=== PATIENT | female | born 1945 | race Caucasian/White ===

== ENCOUNTER 2016-12-20 11:54 | Inpatient (IN) ==
[2016-12-20] MEDS ORDERED: IOPAMIDOL 100 ML BOTTLE IV ONE (11:55)
[2016-12-20] MEDS ORDERED: ASPIRIN 81 MG TAB.CHEW ONE (12:03)
--- NOTE | 2016-12-20 12:25 | XRay Report ---
CLINICAL INFORMATION: Dyspnea. Fever. Cough. TECHNIQUE: Upright PA and lateral chest x-ray COMPARISON: Previous chest x-ray dated 05/15/2016 FINDINGS: Hyperexpansion and increased AP diameter of the chest consistent with emphysema. There are cystic lucencies in the right upper lung which appear new since previous examination. Etiology is not certain. Infectious disease is possible. Localized bronchiectasis should be considered. Cystic metastases are possible. Contrast enhanced chest CT scan recommended for further evaluation. No focal parenchymal infiltrate. No detectable solid mass. Heart size and vascularity are normal. Cinthia and mediastinum are negative. No pleural fluid. No thoracic compression fractures IMPRESSION: 1. Hyperexpansion and changes consistent with emphysema 2. New small cystic lesions in the right upper lobe. Recommend chest CT scan. Interpreted and Authenticated by: Robert Pelayo 12/20/16
--- NOTE | 2016-12-20 12:50 | Emergency Department Note ---
Fever HPI - General Chief Complaint: Fever Stated Complaint: fever, cough, chest pain Time Seen by Provider: 12/20/16 12:44 Source: patient Mode of arrival: ambulatory Limitations: physical limitation - History of Present Illness HPI Narrative: 71-year-old female with a history of cough for the past 2 weeks. Increased with production. And in the last 2 days has developed some fever chills also some chest pain increases on inspiration there is no radiation of pain. Does have a history of COPD and continues smoking. Is abdominal pain there is no nausea vomiting no diarrhea. Patient is running a low-grade temperature 100.2 at this time. Denies upper respiratory type signs or symptoms - Related Data Home Medications Medication Instructions Recorded Confirmed Aspirin [Adult Low Dose Aspirin EC] 81 mg PO DAILY 09/07/15 12/20/16 Levothyroxine Sodium [Synthroid] 100 mcg PO DAILY 09/07/15 12/20/16 Simvastatin [Zocor] 40 mg PO HS 09/07/15 12/20/16 Atenolol [Tenormin] 25 mg PO DAILY 12/20/16 12/20/16 Previous Rx's Medication Instructions Recorded sertraline 25 mg tablet 25 mg PO QDAY #30 tab 12/02/16 Allergies Allergy/AdvReac Type Severity Reaction Status Date / Time Penicillins Allergy Unknown Unknown Verified 12/02/16 08:10 Hydromorphone AdvReac Intermediate Nausea Verified 12/02/16 08:10 seasonal allergies Allergy Unknown Unknown Uncoded 12/02/16 08:10 Review of Systems All systems ED: reviewed and negative except as stated. Constitutional: Reports: fever, chills Eyes: Denies: eye pain ENT ED: Denies: ear pain Cardiovascular: Reports: chest pain Respiratory: Reports: cough. Denies: dyspnea, wheezes, hemoptysis, stridor Gastrointestinal: Denies: abdominal pain Genitourinary: Denies: urgency, dysuria Musculoskeletal: Denies: back pain Integumentary: Denies: rash Neurological: Denies: headache Fever PMH - Past Medical History Medical history: Reports: arthritis, COPD, coronary artery disease, hyperlipidemia, hypertension, migraine, thyroid disease, other (headaches) Psychiatric history: Reports: anxiety, depression Family history: Reports: no significant family history - Social History smoking status: Current every day smoker Alcohol use: Reports: Rarely Drug use: Reports: none Physical Exam - General Limitations: physical limitation General appearance: alert - Head Head exam: atraumatic, normocephalic - Eye Eye exam: Present: normal appearance, PERRL - ENT ENT exam: normal exam, normal oropharynx - Neck Neck exam: Present: normal inspection, full ROM. Absent: trachea midline - Chest Chest inspection: Present: normal inspection. Absent: symmetric chest wall rise , tenderness - Respiratory Respiratory exam: Present: normal lung sounds bilaterally. Absent: respiratory distress, wheezes - Cardiovascular Cardiovascular exam: Present: regular rate, normal rhythm. Absent: bradycardia - Abdominal Exam Abdominal exam: Present: soft. Absent: distention, tenderness, guarding - Extremities Exam Extremities exam: Present: normal inspection. Absent: full ROM, tenderness - Back Exam Back exam: Present: normal inspection. Absent: full ROM, tenderness - Neurological Exam Neurological exam: Present: alert, oriented X3. Absent: CN II-XII intact - Psychiatric Psychiatric exam: Present: normal affect, normal mood - Skin Skin exam: Present: warm, dry Course Vital Signs Temperature 100.4 F H 12/20/16 11:55 Pulse Rate 95 H 12/20/16 11:55 Respiratory Rate 20 12/20/16 11:55 Blood Pressure 171/71 12/20/16 11:55 Pulse Oximetry (%) 94 12/20/16 11:55 Temperature 100.4 F H 12/20/16 11:55 Pulse Rate 88 12/20/16 12:20 Respiratory Rate 20 12/20/16 12:20 Blood Pressure 118/77 12/20/16 12:20 Pulse Oximetry (%) 94 12/20/16 12:20 Fever - Lab Data Result diagrams: 12/20/16 12:27 Lab Results 12/20/16 12/20/16 Range/Units 12:27 12:27 POC Hct 39.0 (36.0-48.0) % Band Neutrophils % Not Reportable POC Sodium 135 (133-145) mmol/L POC Potassium 3.8 (3.3-5.1) mmol/L POC Chloride 95 L (96-108) mmol/L POC Total CO2 24 (22-30) mmol/L POC BUN 10 (8-23) mg/dl POC Creatinine 0.8 (0.6-1.1) mg/dl POC Glucose 129 H (70-105) mg/dL POC WB Ioniz Calcium 1.10 L (1.16-1.32) mmol/L Disposition Condition: Fair Referrals: Robert Jean DO [Primary Care Provider] -
[2016-12-20 13:03] LABS: Mean Cell Volume 93.1 fL (80.0-100.0); Mean Corpuscular HGB Conc 34.2 g/dL (31.0-36.0); Mean Corpuscular Hemoglobin 31.8 pg (26.0-34.0); Platelet Count 332 K/mcL (140-440); RBC 3.92 M/mcL (4.00-5.20); Red Cell Distribution Width 13.9 % (11.5-14.5)
[2016-12-20 13:23] LABS: Myoglobin 41 ng/ml (25-58)
[2016-12-20 13:24] LABS: Creatine Kinase 145 IU/L (24-170)
[2016-12-20 13:42] LABS: Band Neutrophils % 7 % (0-10); Eosinophils % (Manual) 1 % (0-7); Lymphocytes % 12 % (15-49); Monocytes % (Manual) 9 % (1-12); Platelet Estimate NORMAL (NORMAL); RBC Morphology NORMAL (NORMAL); Segmented Neutrophils % 71 % (38-78)
[2016-12-20 14:41] LABS: Appearance,Urine HAZY; Bacteria,Urine 0 /hpf (0); Bilirubin,Urine NEG (NEG); Color,Urine AMBER; Glucose,Urine (UA) NEGATIVE (NEG); Ictotest,Urine NEG (NEG); Leukocyte Esterase,Urine 75 /uL (NEG); Mucus,Urine MANY /hpf (0); Nitrate,Urine NEG (NEG); Protein,Urine 30 mg/dL (NEG); Specific Gravity,Urine 1.023 (1.000-1.035); Urine Blood 0.2 mg/dL (<0.03); Urine Hyaline Cast 1 /lpf (0-2); Urine RBC 39 /hpf (0-1); Urine Squamous Epithelial Cell 3 /hpf (0-4); Urine WBC 7 /hpf (0-4)
--- NOTE | 2016-12-20 16:59 | Cat Scan Report ---
CLINICAL INFORMATION: Fever. Dyspnea. Abnormal chest x-ray. COMPARISON: Previous chest x-rays dated 12/20/2016 and 05/15/2016 TECHNIQUE: Axial contrast enhanced images through the chest. Sagittally and coronally reformatted images. MIP reformatted images. 70 mL nonionic contrast material injected intravenously. FINDINGS: Nodular pulmonary parenchymal abnormality in the anterior segment of the right upper lobe. Mild infiltrate and nodularity in the superior segment of the right upper lobe. Mild focal infiltrate in the right middle lobe. Lungs are otherwise negative. Left lung is negative. No parenchymal infiltrate or mass. Findings are most consistent with inflammatory disease. Cystic lesions were suspected on previous chest x-ray but no well-defined cavitation demonstrated presently. Pulmonary CTA was not performed but the pulmonary vasculature is well opacified and is negative. No pulmonary embolism. Mild right hilar adenopathy. This is probably reactive. Combination of findings most consistent with right lung pneumonia. Follow-up chest x-ray recommended. Cervical lordosis is possible but much less likely in this patient with history of fever and chest pain. No mediastinal adenopathy. Left hilum is negative. No axillary or supraclavicular adenopathy. No pleural fluid. Thoracic spine, ribs, sternum are negative. Images of the upper abdomen are negative except for a left renal cyst and a small to moderate hiatal hernia IMPRESSION: 1. Nodular infiltrate in the right upper lobe and right middle lobe consistent with inflammatory disease. Mild right hilar adenopathy 2. Follow-up chest x-ray recommended. 3. No left lung infiltrate. No pulmonary embolism. 4. Small to moderate hiatal hernia Interpreted and Authenticated by: Robert Pelayo 12/20/16
[2016-12-20] MEDS ORDERED: AZITHROMYCIN 500 MG in DEXTROSE 5% IN WATER 250 ML IV ONE (17:27)
[2016-12-20] MEDS ORDERED: cefTRIAXone 1 GM in DEXTROSE 5% IN WATER 50 ML IV ONE (17:27)
--- NOTE | 2016-12-20 17:58 | Internal Med History&Physical ---
Medical - H&P: [facility] Patient information: Note initiated : 12/20/16 at 5:55 pm Service Date, if different from initiated Date: [] Patient: Tressa Galeas 71 y/o F admitted on for fever, cough, chest pain. Chief Complaint: [] History of present illness: Ms. Galeas is a 71 year old Female with h/o copd, smoker, presents to the ER with complaints of not feeling well x 2 weeks She notes nearly everyone around her was having some kind of infection, grand kids, great grand kids, she started with cough, greenish sputum in AM, and subjective sensation of fever, associated with malaise and shortness of breath, which got progressively worse over 2 weeks SOB has been getting worse, needing use of albuterol x 2 in AM to help her breathe better, She notes she can usually walk [id number] the house without any issues, but now walking down the living room also makes her short of breath. She also reports increased frequency of urinartion and foul smelling urine. - Constitutional Constitutional: Present: chills, fatigue, fever(s), headache(s) (chronic), malaise, night sweats - EENT Eyes: Absent: change in vision, diplopia, photophobia, other visual disturbances - Cardiovascular Cardiovascular: Present: chest pain, dyspnea on exertion. Absent: leg edema, palpatations, syncope - Respiratory Respiratory: Present: cough, dyspnea, dyspnea on exertion, wheezing, chest congestion, excessive phlegm production, change in phlegm color, pain with cough. Absent: hemoptysis - Gastrointestinal Gastrointestinal: Present: dyspepsia, nausea. Absent: constipation, vomiting - Genitourinary Genitourinary: Present: dysuria, urinary urgency - Musculoskeletal Musculoskeletal: Present: arthralgias, back pain - Neurological Neurological: Present: dizziness, headache(s). Absent: syncope - Psychiatric Psychiatric: Present: depression. Absent: behavioral changes - Endocrine Endocrine: Absent: polydipsia, polyphagia, polyuria - Hematologic/Lymphatic Hematologic/Lymphatic: Absent: easy bleeding, easy bruising - Allergic/Immunologic Allergic/Immunologic: Present: wheezing. Absent: lip swelling Medical - H&P: [facility] Medical history: Medical History (Last Updated 12/16/16 @ 12:08 by Madelyn Winslow) Chronic pain syndrome (Chronic) Fibromyalgia (Chronic) Hypothyroidism (Chronic) Restless leg syndrome (Chronic) Low back pain (Chronic) Coronary artery disease (Chronic) Acute diverticulitis (Chronic) Weight loss, abnormal (Chronic) Headache (Chronic) Gastritis (Chronic) Degenerative joint disease (Chronic) Arachnoid cyst (Chronic) Eye discomfort (Chronic) Generalized headaches (Chronic) Tobacco abuse (Chronic) Brain cyst (Chronic ~1991) Bowel disease (Chronic) Thyroid disease (Chronic) Hyperlipidemia (Chronic) Hypertension, essential (Chronic) Depression (Chronic) Muscle pain (Chronic) Lung disorder (Chronic) Arthritis (Chronic) Anxiety (Chronic) UTI (urinary tract infection) (Acute) Delirium (Acute) SIRS (systemic inflammatory response syndrome) (Acute) Septic shock (Acute) Gastroenteritis (Acute) Esophagitis (Acute) Partial small bowel obstruction (Acute) Adynamic ileus (Acute) Gastroduodenitis without bleeding (Acute) Hypertension (Acute) Chronic obstructive lung disease (Acute) Surgical history: Past Surgical History (Last Updated 12/16/16 @ 12:11 by Madelyn Winslow) H/O colonoscopy (Chronic ~2014) H/O knee surgery (Chronic) H/O neck surgery (Chronic 08/18/04) H/O shoulder surgery (Chronic) H/O: (Chronic) H/O: hysterectomy (Chronic) History of esophagogastroduodenoscopy (EGD) (Chronic 05/15/16) History of intestinal surgery (Chronic) History of surgery (Chronic) Status post surgery of both feet (Chronic) Pertinent family history: Family History (Last Reviewed 12/02/16 @ 08:37 by Robert Jean DO) Brother Cancer Cancer of kidney Mother Cancer Respiratory disease Father Cancer Lung cancer Medical - H&P: Meds Home Medications Medication Instructions Recorded Confirmed Type Aspirin [Adult Low Dose Aspirin EC] 81 mg PO DAILY 09/07/15 12/20/16 History Levothyroxine Sodium [Synthroid] 100 mcg PO DAILY 09/07/15 12/20/16 History Simvastatin [Zocor] 40 mg PO HS 09/07/15 12/20/16 History sertraline 25 mg tablet 25 mg PO QDAY #30 tab 12/02/16 12/20/16 Rx Atenolol [Tenormin] 25 mg PO DAILY 12/20/16 12/20/16 History Allergies Allergy/AdvReac Type Severity Reaction Status Date / Time Penicillins Allergy Unknown Unknown Verified 12/02/16 08:10 Hydromorphone AdvReac Intermediate Nausea Verified 12/02/16 08:10 seasonal allergies Allergy Unknown Unknown Uncoded 12/02/16 08:10 Medical - H&P: Exam - Constitutional Vitals: Temp Pulse Resp BP Pulse Ox 98.3 F 78 21 91/57 92 12/20/16 14:22 12/20/16 17:02 12/20/16 17:02 12/20/16 17:02 12/20/16 17:02 Exam: GENERAL: The patient is a well-developed, well-nourished in no apparent distress. Is alert and oriented x3. VITAL SIGNS: Reviewed and as noted elsewhere. HEENT: Head is normocephalic and atraumatic. Extraocular muscles are intact. Pupils are equal, round, and reactive to light. Nares appeared normal. Mouth appears any without lesions. Mucous membranes are moist. NECK: Normal to inspection, Supple, No lymphadenopathy or thyromegaly. LUNGS: Air entry equal on both sides, cody wheezing, prolonged exp phase, no crackles. HEART: Regular rate and rhythm normal, S1 and S2 heard, no Gallop, S3 or Rub Noted, No Gross murmur heard. ABDOMEN: Soft, nontender, and nondistended. Positive bowel sounds. No hepatosplenomegaly was noted. EXTREMITIES: No cyanosis, clubbing, rash, lesions or edema. NEUROLOGIC: Cranial nerves II through XII are grossly intact. Motor and Sensory System Grossly Intact PSYCHIATRIC: Normal affect, Normal Mood. Appropriate Behavior. SKIN: No ulceration or wounds noted, No jaundice, No rash noted. Medical - H&P: [facility] - Labs CBC & Chem 7: 12/20/16 12:27 Labs: Short CBC 12/20/16 Range/Units 12:27 WBC 12.1 H (4.5-11.0) K/mcL Hgb 12.5 (12.0-15.0) g/dL Hct 36.5 (36.0-48.0) % Plt Count 332 (140-440) K/mcL Cardiac Enzymes 12/20/16 12/20/16 Range/Units 12:27 12:27 Total Creatine Kinase 145 (24-170) IU/L CK-MB (CK-2) 2.0 (0-2.9) ng/ml Troponin T < 0.01 (0-0.03) ng/ml Urine 12/20/16 Range/Units 13:34 Urine Color Jacque Urine Appearance Hazy Urine pH 5.0 (5.0-9.0) Ur Specific [place] 1.023 (1.000-1.035) Urine Protein 30 A (NEG) mg/dL Urine Glucose (UA) Negative (NEG) mg/dL - Impressions EKG: Sinus rhythm, non sp st wave chanegs in lateral leads, CXR chest, Possile lytic lesions CT chest, Rigut upper lobe PNA> UA abnl Medical - H&P: A/P - Narrative A/P Narrative: A/P Acute COPD exacerbation: Treat with Duonebs, PO steroids and antibiotics, monitor for now, INcentive spiromerty, Still smokes, Smoking cessation advised. Pneumonia: Community acquired, IV rocephin and zithromax, Check blood sputum cx , myclplasma antibiodies and urien legionealla UTI: abnl UA, on Rocephin which should cover this, monitor. HLD resume statin HTN continue atenolol for now. Hypothyroidism: clinically euthyroid, on levothyroxine, continue same. DVT hep sq Diet regular Full code Social History - Social History marital status: - Tobacco smoking status: Current every day smoker - Tobacco Type tobacco type: cigarettes - Alcohol alcohol intake frequency: does not drink - Substance use substance use type: does not use
[2016-12-20] MEDS ORDERED: predniSONE 20 MG TABLET PO ONE (19:03)
[2016-12-20] MEDS ORDERED: NALOXONE HCL 0.4 MG/ML VIAL IV PRN (19:03)
[2016-12-20] MEDS ORDERED: HYDROcodone/APAP 5/325MG TABLET PO PRN (19:03)
[2016-12-20] MEDS ORDERED: NICOTINE 14 MG PATCH TOPICAL ONE (19:03)
[2016-12-20] MEDS ORDERED: MAGNESIUM HYDROXIDE 30 ML ORAL.SUSP PO PRN (19:03)
[2016-12-20] MEDS ORDERED: ACETAMINOPHEN 325 MG TABLET PO PRN (19:03)
[2016-12-20] MEDS ORDERED: ONDANSETRON 4 MG/2 ML VIAL IV PRN (19:03)
[2016-12-20] MEDS: IPRATROPIUM/ALBUTEROL 3 ML AMPUL.NEB NEB SCH ×2 (21:06→21:07)
[2016-12-20] MEDS: HEPARIN 5,000 UNIT/ML VIAL SQ SCH (21:35)
[2016-12-20] MEDS: FAMOTIDINE 20 MG TABLET PO SCH (21:36)
[2016-12-20] MEDS: SIMVASTATIN 40 MG TABLET PO SCH (21:36)
[2016-12-20] MEDS: 0.9 % SODIUM CHLORIDE 10 ML SYRINGE IV SCH (23:53)
[2016-12-21 00:05] LABS: Hemoglobin A1C 5.7 % HGB (4.0-6.0)
[2016-12-21] MEDS: IPRATROPIUM/ALBUTEROL 3 ML AMPUL.NEB NEB SCH ×6 (03:06→23:12)
[2016-12-21] MEDS: LEVOTHYROXINE 100 MCG TABLET PO SCH (07:42)
[2016-12-21] MEDS: 0.9 % SODIUM CHLORIDE 10 ML SYRINGE IV SCH ×3 (07:43→20:23)
[2016-12-21 08:21] LABS: Basophils # (Auto) 0 K/mcL (0.0-0.3); Basophils % (Auto) 0 % (0.0-2.0); Eosinophils # (Auto) 0 K/mcL (0.0-0.7); Eosinophils % (Auto) 0.3 % (0.0-7.0); Lymphocytes # (Auto) 0.6 K/mcL (1.5-4.8); Lymphocytes % (Auto) 6.4 % (15.5-49.0); Mean Cell Volume 93.6 fL (80.0-100.0); Mean Corpuscular HGB Conc 34.5 g/dL (31.0-36.0); Mean Corpuscular Hemoglobin 32.3 pg (26.0-34.0); Monocytes # (Auto) 0.1 K/mcL (0.1-0.9); Monocytes % (Auto) 1.3 % (1.0-12.0); Platelet Count 333 K/mcL (140-440); RBC 3.76 M/mcL (4.00-5.20); Red Cell Distribution Width 13.9 % (11.5-14.5)
[2016-12-21] MEDS: FAMOTIDINE 20 MG TABLET PO SCH ×3 (08:34→20:22)
[2016-12-21] MEDS: predniSONE 20 MG TABLET PO SCH (08:34)
[2016-12-21] MEDS: ASPIRIN 81 MG TAB.CHEW PO SCH (08:34)
[2016-12-21] MEDS: SERTRALINE 50 MG TABLET PO SCH (08:34)
[2016-12-21] MEDS: HEPARIN 5,000 UNIT/ML VIAL SQ SCH ×2 (08:35→20:23)
[2016-12-21] MEDS: cefTRIAXone 1 GM in DEXTROSE 5% IN WATER 50 ML IV SCH (08:36)
[2016-12-21 08:39] LABS: ALT/SGPT 24 U/l (0-40); Albumin 3.8 gm/dL (3.2-5.2); Albumin/Globulin Ratio 1.3 (1.0-2.3); Alkaline Phosphatase 57 U/L (39-117); Bilirubin,Direct < 0.2 mg/dL (0.0-0.3); Blood Urea Nitrogen 11 mg/dl (8-23); Gamma Glutamyl Transpeptidase 13 U/L (5-36); Magnesium 2.1 mg/dL (1.6-2.5); Uric Acid 4.6 mg/dL (2.5-8.0)
[2016-12-21] MEDS ORDERED: AZITHROMYCIN 250 MG in DEXTROSE 5% IN WATER 250 ML IV SCH (09:00)
[2016-12-21] MEDS: ATENOLOL 50 MG TABLET PO SCH (10:20)
[2016-12-21] MEDS: NICOTINE 14 MG PATCH TOPICAL SCH (11:22)
--- NOTE | 2016-12-21 14:45 | Internal Med Progress Note ---
Medical - PN: Subj Patient information: Note initiated : 12/21/16 at 2:42 pm Service Date, if different from initiated Date: [] Patient: Tressa Galeas 71 y/o F admitted on 12/20/16 for fever, cough, chest pain. Chief Complaint: [] Interval history: Ms. Galeas is a 71 year old Female with h/o copd, smoker, presents to the ER with complaints of not feeling well x 2 weeks She notes nearly everyone around her was having some kind of infection, grand kids, great grand kids, she started with cough, greenish sputum in AM, and subjective sensation of fever, associated with malaise and shortness of breath, which got progressively worse over 2 weeks SOB has been getting worse, needing use of albuterol x 2 in AM to help her breathe better, She notes she can usually walk [id number] the house without any issues, but now walking down the living room also makes her short of breath. She also reports increased frequency of urination and foul smelling urine. 12/21 Pt seen examined, no acute overnight events, some improvement since yesterday, but not much, no new complaints, has chr neck and back pains. Microbiology is neg labs reviewed with pt She was able to go to the bathroom this AM with minimal SOB. Pertinent ROS: Denies headache, dizziness Denies chest pain, palpitations cougn and shortness of breath present. Denies abdominal pain, nausea or vomiting. - Constitutional Vitals: Vital Signs Temp Pulse Resp BP Pulse Ox 97.5 F 63 16 121/67 98 12/21/16 11:29 12/21/16 11:44 12/21/16 11:44 12/21/16 11:29 12/21/16 11:44 Period Temp Pulse Resp BP Sys/Ridley Pulse Ox Last 24 Hr 97.0 F-98.6 F 55-74 12-24 95-130/56-67 92-99 Intake and Output 12/21/16 12/21/16 12/21/16 05:59 13:59 21:59 Intake Total 500 / 500 Output Total 300 / 300 150 / 150 Balance 200 / 200 -150 / -150 Intake & Output: Intake & Output 12/21/16 12/21/16 12/21/16 05:59 13:59 21:59 Intake Total 500 / 500 Output Total 300 / 300 150 / 150 Balance 200 / 200 -150 / -150 Intake: Oral 500 / 500 Output: Void Amount 300 / 300 150 / 150 Other: # Voids 1 Exam: Constitutional; Afebrile, cooperative, alert, not in distress. Eyes- No icterus, , No periorbital swelling Ears- Ext ear normal, hearing normal to conversation. Neck- Midline trachea, supple Respiratory system: Air Entry equal on both sides,prolonged exp phase, wheezing present CVS- Rate rhythm regular, S1,S2 heard, no gallop, no rub. Abdomen- Soft nontender abdomen, no organomegaly, no tenderness, no guarding or rigidity, [employer]- AOOx3, moving all extremities, no gross focal deficit noted. Medical - PN: Obj Da - Labs CBC & Chem 7: 12/21/16 07:20 12/21/16 07:20 Labs: Abnormal Lab Results 12/21/16 12/21/16 07:20 07:20 RBC 3.76 L Hct 35.2 L Gran % 92.0 H Lymph % (Auto) 6.4 L Gran # 8.1 H Lymph # (Auto) 0.6 L Glucose 185 H Meds: Medications Acetaminophen (Tylenol) 650 mg PO Q6HP PRN PRN Reason: PAIN/FEVER > 101 Hydrocodone Bitart/Acetaminophen (Bend 5/325mg) 1 tab PO Q4HP PRN PRN Reason: Pain Albuterol/Ipratropium (Duoneb) 3 ml NEB Q4HRT [facility] Last Admin: 12/21/16 11:26 Dose: 3 ml Aspirin (Aspirin) 81 mg PO DAILY [facility] Last Admin: 12/21/16 08:34 Dose: 81 mg Atenolol (Tenormin) 25 mg PO DAILY [facility] Last Admin: 12/21/16 10:20 Dose: Not Given Famotidine (Pepcid) 20 mg PO BID [facility] Last Admin: 12/21/16 08:38 Dose: Not Given Heparin Sodium (Porcine) (Heparin) 5,000 unit SQ Q12 [facility] Last Admin: 12/21/16 08:35 Dose: 5,000 unit Azithromycin 250 mg/ Dextrose 250 mls @ 250 mls/hr IV DAILY [facility] Stop: 12/23/16 09:59 Last Admin: 12/21/16 10:20 Dose: 250 mls/hr Ceftriaxone Sodium 1 gm/ (Dextrose) 50 mls @ 100 mls/hr IV DAILY [facility] Last Admin: 12/21/16 08:36 Dose: 100 mls/hr Levothyroxine Sodium (Synthroid) 100 mcg PO ACB [facility] Last Admin: 12/21/16 07:42 Dose: 100 mcg Magnesium Hydroxide (Milk Of Magnesia) 30 ml PO DAILYP PRN PRN Reason: Constipation Naloxone HCl (Narcan) 0.1 mg IV Q2MIN PRN PRN Reason: Opiate Reversal Nicotine (Nicoderm) 14 mg TOPICAL DAILY@1000 [facility] Last Admin: 12/21/16 11:22 Dose: 14 mg Ondansetron HCl (Zofran) 4 mg IV Q6HP PRN PRN Reason: Nausea And Vomiting [facility]) [facility] Admin: 12/21/16 08:34 Dose: 40 mg Sertraline HCl (Zoloft) 25 mg PO DAILY [facility] Last Admin: 12/21/16 08:34 Dose: 25 mg Simvastatin (Zocor) 40 mg PO HS [facility] Last Admin: 12/20/16 21:36 Dose: 40 mg Sodium Chloride (Saline Flush) 10 ml IV Q8 [facility] Last Admin: 12/21/16 07:43 Dose: 10 ml Medical - PN: A/P - Time Spent With Patient Total time spent is greater than 50% in coordination of care (as documented) at patient's floor/unit and/or counseling patient: - Narrative A/P Narrative: A/P Acute COPD exacerbation: contiue treatment with Duonebs, PO steroids and antibiotics,on oxygen today, Incentive spiromerty, nicoderm for smoking cessation. Pneumonia: Community acquired, IV rocephin and zithromax, microbiology is negative so far. UTI: abnl UA, on Rocephin which should cover this, monitor. culture results pending. HLD resume statin HTN continue atenolol for now. Hypothyroidism: clinically euthyroid, on levothyroxine, continue same. DVT hep sq Diet regular Full code Medical - PN: Qual - Stroke Symptom Onset Unknown: No - VTE Deep Vein Thrombosis/Pulmonary Embolism Present on Admission: No
[2016-12-21] MEDS: SIMVASTATIN 40 MG TABLET PO SCH (20:22)
[2016-12-21] MEDS ORDERED: ZOLPIDEM 5 MG TABLET PO PRN (23:07)
[2016-12-21] MEDS ORDERED: ZOLPIDEM 5 MG TABLET ONE (23:15)
[2016-12-22] MEDS: IPRATROPIUM/ALBUTEROL 3 ML AMPUL.NEB NEB SCH ×3 (04:12→11:00)
[2016-12-22 05:59] LABS: Basophils # (Auto) 0 K/mcL (0.0-0.3); Basophils % (Auto) 0.3 % (0.0-2.0); Eosinophils # (Auto) 0.1 K/mcL (0.0-0.7); Eosinophils % (Auto) 0.6 % (0.0-7.0); Granulocytes % (Auto) 76.5 % (38.0-78.0); Lymphocytes # (Auto) 1.9 K/mcL (1.5-4.8); Lymphocytes % (Auto) 15.2 % (15.5-49.0); Mean Corpuscular HGB Conc 34.8 g/dL (31.0-36.0); Mean Corpuscular Hemoglobin 32.3 pg (26.0-34.0); Monocytes # (Auto) 0.9 K/mcL (0.1-0.9); Monocytes % (Auto) 7.4 % (1.0-12.0); Platelet Count 340 K/mcL (140-440); RBC 3.58 M/mcL (4.00-5.20); Red Cell Distribution Width 13.8 % (11.5-14.5)
[2016-12-22 06:46] LABS: ALT/SGPT 21 U/l (0-40); Albumin 3.5 gm/dL (3.2-5.2); Albumin/Globulin Ratio 1.2 (1.0-2.3); Alkaline Phosphatase 61 U/L (39-117); Bilirubin,Direct < 0.2 mg/dL (0.0-0.3); Blood Urea Nitrogen 12 mg/dl (8-23); Gamma Glutamyl Transpeptidase 15 U/L (5-36); Uric Acid 4.2 mg/dL (2.5-8.0)
[2016-12-22] MEDS: predniSONE 20 MG TABLET PO SCH (07:49)
[2016-12-22] MEDS: ASPIRIN 81 MG TAB.CHEW PO SCH (07:50)
[2016-12-22] MEDS: FAMOTIDINE 20 MG TABLET PO SCH (07:50)
[2016-12-22] MEDS: ATENOLOL 50 MG TABLET PO SCH (07:50)
[2016-12-22] MEDS: LEVOTHYROXINE 100 MCG TABLET PO SCH (07:51)
[2016-12-22] MEDS: SERTRALINE 50 MG TABLET PO SCH (07:52)
[2016-12-22] MEDS: HEPARIN 5,000 UNIT/ML VIAL SQ SCH (07:53)
[2016-12-22] MEDS: 0.9 % SODIUM CHLORIDE 10 ML SYRINGE IV SCH (07:54)
[2016-12-22] MEDS: cefTRIAXone 1 GM in DEXTROSE 5% IN WATER 50 ML IV SCH (07:55)
[2016-12-22] MEDS ORDERED: AZITHROMYCIN 250 MG in DEXTROSE 5% IN WATER 250 ML IV SCH (10:00)
[2016-12-22] MEDS: NICOTINE 14 MG PATCH TOPICAL SCH (10:14)
--- NOTE | 2016-12-22 10:58 | Discharge Summary ---
Medical - DS: Prov Patient information: Note initiated : 12/22/16 at 10:55 am Service Date, if different from initiated Date: [] Patient: Tressa Galeas 71 y/o F admitted on 12/20/16 for Fever, Cough, Chest Pain/COPD, Pneumonia, UTI. Chief Complaint: [] Date of admission: 12/20/16 18:38 Discharge date: 12/22/16 Primary care physician: Robert Jean Admitting clinician: Drew Howard Discharging clinician: Drew Howard Medical - DS: Meds - Discharge Medications Prescriptions: Azithromycin [Zithromax] 250 mg PO DAILY #3 tablet Cefdinir 300 mg PO BID #6 capsule Ipratropium/Albuterol Sulfate [Combivent] 2 puff INH QID #1 inhaler predniSONE [Deltasone] 40 mg PO DAILY #6 tablet Active and Home Medications: Home Medications Aspirin [Adult Low Dose Aspirin EC] 81 mg PO DAILY 09/07/15 [History Confirmed 12/20/16 Last Taken 12/19/16 19:00] Levothyroxine Sodium [Synthroid] 100 mcg PO DAILY 09/07/15 [History Confirmed Last Taken 12/19/16 10:00] Simvastatin [Zocor] 40 mg PO HS 09/07/15 [History Confirmed 12/20/16 Last Taken 12/19/16 19:00] sertraline 25 mg tablet 25 mg PO QDAY #30 tab 12/02/16 [Rx Confirmed 12/20/16 Last Taken 12/19/16 19:00] Atenolol [Tenormin] 25 mg PO DAILY 12/20/16 [History Confirmed 12/20/16 Last Taken 11/29/16 19:00] Medical - DS: Hosp Hospital course: Ms. Galeas is a 71 year old Female with h/o copd, smoker, presents to the ER with complaints of not feeling well x 2 weeks, She notes nearly everyone around her was having some kind of infection, grand kids, great grand kids, she started with cough, greenish sputum in AM, and subjective sensation of fever, associated with malaise and shortness of breath, which got progressively worse over 2 weeks SOB has been getting worse, needing use of albuterol x 2 in AM to help her breathe better, She notes she can usually walk [id number] the house without any issues, but now walking down the living room also makes her short of breath. She also reports increased frequency of urination and foul smelling urine. Pneumonia: Community acquired pna, treated with rocephin and zithromax, responded well to treatment, will complete course with zithromax and cefdinir. Microbiology was negative. COPD exacerbation: patient treated with duonebs and steroids, responded well, no wheezing on discharge dose have some SOB at the time of d/c patient to take combivent at d/c. She may benefit from PFT as outpatient. UTI: She has ua positive for UTI with symptoms of UTI, urine cx was neg, she was on rocephin which would cover her UTI. Overall at the time of discharge the patient was back to baseline, feeling ok to go home. Patient has chr neck pain issues, for which she is going to see her pcp, No changes in home meds done except addition of combivent, and short term steroids and abx. Discharge diagnosis: Pneumonia, COPD exacerbation. - Time Spent with Patient Total time spent providing and/or coordinating discharge services: Greater than 30 minutes Medical - DS: Exam - Constitutional Vitals: Vital Signs Temp Pulse Pulse Resp BP Pulse Ox 12/22/16 10:00 67 97 12/22/16 07:54 80 94 12/22/16 07:51 84 16 12/22/16 07:30 98.4 F 67 20 120/68 96 12/22/16 04:00 98.1 F 68 24 H 136/67 96 12/21/16 23:47 97.8 F 74 20 152/75 95 12/21/16 23:20 69 20 12/21/16 19:19 98.0 F 72 68 20 149/70 96 12/21/16 19:11 98 12/21/16 16:00 97.9 F 83 16 143/61 96 12/21/16 15:02 67 20 12/21/16 14:55 96 12/21/16 14:54 96 12/21/16 11:44 63 16 98 12/21/16 11:42 64 16 12/21/16 11:29 97.5 F 22 121/67 96 Intake and Output 07/04/17 07/05/17 07/05/17 21:59 05:59 13:59 Intake Total 420 / 420 1090 / 1090 240 / 240 Output Total 950 / 950 1000 / 1000 325 / 325 Balance -530 / -530 90 / 90 -85 / -85 Intake: Oral 420 / 420 1090 / 1090 240 / 240 Output: Void Amount 950 / 950 1000 / 1000 325 / 325 Other: Meal Lunch Breakfast Percent of Meal Consumed 100% 75% Feeding Ability Independent # Voids 1 1 1 Weight 132 lb Additional comments: Constitutional; Afebrile, cooperative, alert, not in distress. Eyes- No icterus, , No periorbital swelling Ears- Ext ear normal, hearing normal to conversation. Neck- Midline trachea, supple Respiratory system: Air Entry equal on both sides, No crackles or wheezing, no rhonchi. CVS- Rate rhythm regular, S1,S2 heard, no gallop, no rub. Abdomen- Soft nontender abdomen, no organomegaly, no tenderness, no guarding or rigidity, [employer]- AOOx3, moving all extremities, no gross focal deficit noted. Medical - DS: Data Labs on day of discharge: Labs from last 24 hours 12/22/16 12/22/16 04:55 04:55 WBC 12.8 H RBC 3.58 L Hgb 11.6 L Hct 33.3 L MCV 93.0 MCH 32.3 MCHC 34.8 RDW 13.8 Plt Count 340 MPV 8.2 Gran % 76.5 Lymph % (Auto) 15.[address] [place] % (Auto) 7.4 Eos % (Auto) 0.6 Baso % (Auto) 0.3 Gran # 9.8 H Lymph # (Auto) 1.9 [place] # (Auto) 0.9 Eos # (Auto) 0.1 Baso # (Auto) 0 Sodium 136 Potassium 3.7 Chloride 98 Carbon Dioxide 25 Anion Gap 13.0 BUN 12 Creatinine 0.6 GFR Calculation 90 Glucose 100 Uric Acid 4.2 Calcium 9.0 Phosphorus 2.8 Magnesium 2.0 Total Bilirubin < 0.2 Direct Bilirubin < 0.2 GGT 15 AST 19 ALT 21 Alkaline Phosphatase 61 Lactate Dehydrogenase 173 Total Protein 6.4 Albumin 3.5 Globulin 2.9 Albumin/Globulin Ratio 1.2 Triglycerides 96 Medical - DS: A/P - Patient/Caregiver Discharge Instructions Activity: increase activity as tolerated Diet: Regular Diet Additional Instructions: FOllow up with your pcp as per your previous schedule Avoid smoking. go to er if fever 101 or above, sob or any new concerning symptom. Take medications as prescribed. - Follow up Plan Follow up with: Robert Jean DO [Primary Care Provider] - Disposition: Home, Self-Care Prognosis: Fair Rehab Potential: Fair I certify that the patient requires SNF services: No Overall status at discharge: patient is progressing back to baseline Medical - DS: Qual - VTE Deep Vein Thrombosis/Pulmonary Embolism Present on Admission: No
[2016-12-27 12:20] LABS: Legionella pneumophilia Ag, Ur NOT DETECTED
[2016-12-27 12:20] LABS: M. Pneumoniae IGG 1.47 ISR
== END 2016-12-22 12:50 | disposition home or self-care (01) | DRG 190 ==
LOC: ED 11:54 → MEDSUR 18:35
PROVIDERS: ADMIT Internal Medicine; ATTEND Internal Medicine

== ENCOUNTER 2017-11-27 05:58 | Inpatient (IN) ==
[2017-11-27] MEDS ORDERED: IOPAMIDOL 100 ML BOTTLE IV ONE (05:59)
[2017-11-27] MEDS ORDERED: LEVOFLOXACIN 750 MG/150 ML BAG IV ONE (06:36)
[2017-11-27] MEDS ORDERED: 0.9 % SODIUM CHLORIDE 1,000 ML IV ONE ×3 (06:36→08:38)
--- NOTE | 2017-11-27 06:40 | Emergency Department Note ---
Fever HPI - General Chief Complaint: Fever Stated Complaint: fever Time Seen by Provider: 11/27/17 06:31 Source: patient, family Mode of arrival: EMS Limitations: no limitations - History of Present Illness HPI Narrative: 72-year-old female comes in by EMS with fever of 102.5 and bilateral lower quadrant tenderness; worst on the left and right upper quadrant. She is also had a 3 day history of nausea and vomiting. No shortness of breath. Tylenol appears to help-she took some before coming in and now her temperature is down to 100.5. Some shortness of breath and general malaise. Had CT angiogram of the chest 2 days ago-notably no pulmonary emboli but she does have significant atherosclerosis of her heart noted. No chest pain though but significant cough , nonproductive Had abdominal aortic surgery 3 weeks ago with stent placement by Dr. Leigh. She says she has not felt right since her stent - Related Data Home Medications Medication Instructions Recorded Confirmed Aspirin [Adult Low Dose Aspirin EC] 81 mg PO DAILY 09/07/15 11/17/17 Previous Rx's Medication Instructions Recorded Ipratropium/Albuterol Sulfate 2 puff INH QID #1 inhaler 12/22/16 [Combivent] predniSONE [Deltasone] 40 mg PO DAILY #6 tab 12/22/16 atenolol 25 mg tablet 25 mg PO DAILY #90 tab 12/23/16 levothyroxine 100 mcg tablet 100 mcg PO DAILY #90 tab 12/23/16 sertraline 50 mg tablet 50 mg PO QDAY #90 tab 12/23/16 simvastatin 40 mg tablet 40 mg PO HS #90 tab 12/23/16 methocarbamol 750 mg tablet 750 mg PO Q6H PRN #90 tab 04/12/17 tramadol 50 mg tablet 50 mg PO Q6H PRN #90 tab 04/12/17 bisoprolol fumarate 10 mg tablet 10 mg PO QDAY #90 tab 04/21/17 Allergies Allergy/AdvReac Type Severity Reaction Status Date / Time Penicillins Allergy Unknown Unknown Verified 11/17/17 13:43 Hydromorphone AdvReac Intermediate Nausea Verified 11/17/17 13:43 Review of Systems All systems ED: reviewed and negative except as stated. Fever PMH - Past Medical History Attestation: Yes: The following information was validated with the patient. Medical history: Reports: arthritis, COPD, coronary artery disease, hyperlipidemia, hypertension, migraine, thyroid disease, other (headaches) Surgical history ED: Reports: , hysterectomy, orthopedic, other (Neck, knee, shoulder, bilateral feet), other (Intestinal tumor removal) Psychiatric history: Reports: anxiety, depression Family history: Reports: no significant family history - Social History smoking status: Current every day smoker Alcohol use: Reports: Rarely Drug use: Reports: none Physical Exam Thin female mildly ill-appearing. Normocephalic atraumatic. Conjunctive are clear sclerae nonicteric. No nasal discharge or congestion. Oropharynx pink and moist. Neck is supple without lymphadenopathy thyromegaly or carotid bruit. Heart is regular rate and rhythm no murmur appreciated. Lungs are clear to auscultation bilaterally without wheezes rales rhonchi or respiratory distress. Abdomen is soft nontender except for the lower quadrants which are mildly tender. No distention rigidity peritoneal signs or guarding. Normoactive bowel sounds. I do not hear an abdominal bruit. No pedal edema. + 2 radial pulse. Blood pressure is low here. Alert oriented able to answer questions appropriately Limitations: no limitations Course Vital Signs Temperature 100.6 F H 11/27/17 06:00 Pulse Rate 85 11/27/17 06:00 Respiratory Rate 20 11/27/17 06:00 Blood Pressure 101/63 11/27/17 06:00 Pulse Oximetry (%) 96 11/27/17 06:00 Temperature 99.5 F H 11/27/17 08:02 Pulse Rate 85 11/27/17 06:00 Respiratory Rate 20 11/27/17 06:00 Blood Pressure 101/63 11/27/17 06:00 Pulse Oximetry (%) 96 11/27/17 06:00 Fever - Lab Data Lab results reviewed: Yes I reviewed the patient's lab results. Result diagrams: 11/27/17 06:50 11/27/17 06:50 Lab Results 11/27/17 11/27/17 11/27/17 Range/Units 06:50 06:50 06:50 WBC 6.8 (4.5-11.0) K/mcL RBC 3.92 L (4.00-5.20) M/mcL Hgb 12.3 (12.0-15.0) g/dL Hct 36.4 (36.0-48.0) % POC Hct 35.0 L (36.0-48.0) % MCV 92.7 (80.0-100.0) fL MCH 31.3 (26.0-34.0) pg MCHC 33.7 (31.0-36.0) g/dL RDW 13.7 (11.5-14.5) % Plt Count 287 (140-440) K/mcL MPV 8.0 (7.4-10.4) fL Gran % 94.5 H (38.0-78.0) % Lymph % (Auto) 3.1 L (15.5-49.0) % [place] % (Auto) 2.2 (1.0-12.0) % Eos % (Auto) 0.1 (0.0-7.0) % Baso % (Auto) 0.1 (0.0-2.0) % Gran # 6.4 (1.8-8.0) K/mcL Lymph # (Auto) 0.2 L (1.5-4.8) K/mcL [place] # (Auto) 0.1 (0.1-0.9) K/mcL Eos # (Auto) 0 (0.0-0.7) K/mcL Baso # (Auto) 0 (0.0-0.3) K/mcL VBG Lactic Acid 1.3 (0.5-2.2) mmol/L POC Sodium 139 (133-145) mmol/L Sodium 139 (133-145) mmol/L POC Potassium 3.8 (3.3-5.1) mmol/L Potassium 3.9 (3.3-5.1) mmol/L POC Chloride 102 (96-108) mmol/L Chloride 99 (96-108) mmol/L Carbon Dioxide 27 (22-30) mmol/L POC Total CO2 26 (22-30) mmol/L Anion Gap 13.0 (8-16) POC BUN 14 (8-23) mg/dl BUN 14 (8-23) mg/dl Creatinine 1.1 (0.6-1.1) mg/dl POC Creatinine 1.2 H (0.6-1.1) mg/dl GFR Calculation 49 Glucose 119 H (70-105) mg/dL POC Glucose 116 H (70-105) mg/dL Calcium 8.8 (8.6-10.4) mg/dl POC WB Ioniz Calcium 1.07 L (1.16-1.32) mmol/L Total Bilirubin 0.3 (0.0-1.0) mg/dL AST 28 (0-37) U/l ALT 13 (0-40) U/l Alkaline Phosphatase 57 (39-117) U/L Troponin T (0-0.03) ng/ml Total Protein 6.5 (5.9-8.4) gm/dL Albumin 3.8 (3.2-5.2) gm/dL Globulin 2.7 (2.2-3.7) gm/dL Albumin/Globulin Ratio 1.4 (1.0-2.3) Lipase 21 (7-60) U/L 11/27/17 Range/Units 06:50 WBC (4.5-11.0) K/mcL RBC (4.00-5.20) M/mcL Hgb (12.0-15.0) g/dL Hct (36.0-48.0) % POC Hct (36.0-48.0) % MCV (80.0-100.0) fL MCH (26.0-34.0) pg MCHC (31.0-36.0) g/dL RDW (11.5-14.5) % Plt Count (140-440) K/mcL MPV (7.4-10.4) fL Gran % (38.0-78.0) % Lymph % (Auto) (15.5-49.0) % [place] % (Auto) (1.0-12.0) % Eos % (Auto) (0.0-7.0) % Baso % (Auto) (0.0-2.0) % Gran # (1.8-8.0) K/mcL Lymph # (Auto) (1.5-4.8) K/mcL [place] # (Auto) (0.1-0.9) K/mcL Eos # (Auto) (0.0-0.7) K/mcL Baso # (Auto) (0.0-0.3) K/mcL VBG Lactic Acid (0.5-2.2) mmol/L POC Sodium (133-145) mmol/L Sodium (133-145) mmol/L POC Potassium (3.3-5.1) mmol/L Potassium (3.3-5.1) mmol/L POC Chloride (96-108) mmol/L Chloride (96-108) mmol/L Carbon Dioxide (22-30) mmol/L POC Total CO2 (22-30) mmol/L Anion Gap (8-16) POC BUN (8-23) mg/dl BUN (8-23) mg/dl Creatinine (0.6-1.1) mg/dl POC Creatinine (0.6-1.1) mg/dl GFR Calculation Glucose (70-105) mg/dL POC Glucose (70-105) mg/dL Calcium (8.6-10.4) mg/dl POC WB Ioniz Calcium (1.16-1.32) mmol/L Total Bilirubin (0.0-1.0) mg/dL AST (0-37) U/l ALT (0-40) U/l Alkaline Phosphatase (39-117) U/L Troponin T 0.79 H* (0-0.03) ng/ml Total Protein (5.9-8.4) gm/dL Albumin (3.2-5.2) gm/dL Globulin (2.2-3.7) gm/dL Albumin/Globulin Ratio (1.0-2.3) Lipase (7-60) U/L Urinalysis [id number] dipstick shows positive nitrites leukocytes and blood - Radiology Data Radiology results reviewed: Yes I reviewed the patient's radiology results. Per Dr. Tran phone report CT scan abdomen and pelvis is negative for significant pathology - EKG Data EKG attestation: Yes I reviewed and interpreted this EKG. EKG results narrative: EKG shows rate of 71 normal sinus [id number] depression in lead II, III is nonspecific. When compared to previous EKGs from last year this is only mildly worse. Repeat EKG was done which is more consistent with previous EKG from 2017 -again nonspecific ST changes Critical Care Time Critical Care Time: Yes Total Critical Care Time: 75 Attestation: Approximately 75 minutes of critical care time including care coordination, serial evaluation, reviewing studies and medical records and documentation. I was immediately available to the patient the entire time Disposition Pt seen by RESTAURANT ASSISTANT/PA only: No Clinical Impression: Elevated troponin UTI (urinary tract infection) Qualifiers: Urinary tract infection type: acute cystitis Hematuria presence: with hematuria Qualified Code(s): N30.01 - Acute cystitis with hematuria Sepsis Qualifiers: Sepsis type: sepsis due to unspecified organism Qualified Code(s): A41.9 - Sepsis, unspecified organism Coronary artery disease Qualifiers: Coronary Disease-Associated Artery/Lesion type: [place] artery [place] vs. transplanted heart: [place] heart Associated angina: without angina Qualified Code(s): I25.10 - Atherosclerotic heart disease of [place] coronary artery without angina pectoris Summary: After initial interview and exam workup was started with laboratory EKG and imaging. Blood cultures were done and antibiotic (Levaquin ) started out of concern for SIRS versus sepsis-especially with pain in the lower quadrants Blood pressure dropped into the 80s over 50s-despite getting aggressive fluid boluses Troponin is elevated and she does not have a history of kidney disease nor heart failure. Initially we were going to investigate her belly pain with a CT scan but since troponin is elevated will discuss with cardiology first-called [facility] photographer motion picture [employer] credit card collection clerk Dr. Portillo. He did not feel that this is likely cardiac but because of the sepsis picture, he thought that the troponin elevation was more likely related to the sepsis especially in the context of recent interventional radiology and underlying coronary artery disease. We will proceed with CT scan of the abdomen and pelvis. Continue fluid boluses. Discussed case with Dr. Roger Cardona, hospitalist here. Concern for possible sepsis with hypotension, fever and evidence of UTI on urine dipstick. However laboratory does not show leukocytosis or lactic acidosis. Ordered urine microscopy. Abbreviated report of CT scan of the abdomen by Dr. Tran, no acute findings. Dr. Cardona agreed to accept patient for further workup and evaluation Disposition: Xfer As Inpt ([facility]) Condition: Critical Referrals: Robert Jean DO [Primary Care Provider] -
[2017-11-27] MEDS ORDERED: ACETAMINOPHEN 325 MG TABLET PO ONE (07:10)
[2017-11-27 07:44] LABS: Basophils # (Auto) 0 K/mcL (0.0-0.3); Basophils % (Auto) 0.1 % (0.0-2.0); Eosinophils # (Auto) 0 K/mcL (0.0-0.7); Eosinophils % (Auto) 0.1 % (0.0-7.0); Granulocytes % (Auto) 94.5 % (38.0-78.0); Lymphocytes # (Auto) 0.2 K/mcL (1.5-4.8); Lymphocytes % (Auto) 3.1 % (15.5-49.0); Mean Cell Volume 92.7 fL (80.0-100.0); Mean Corpuscular HGB Conc 33.7 g/dL (31.0-36.0); Mean Corpuscular Hemoglobin 31.3 pg (26.0-34.0); Monocytes # (Auto) 0.1 K/mcL (0.1-0.9); Monocytes % (Auto) 2.2 % (1.0-12.0); Platelet Count 287 K/mcL (140-440); RBC 3.92 M/mcL (4.00-5.20); Red Cell Distribution Width 13.7 % (11.5-14.5)
[2017-11-27 08:02] LABS: ALT/SGPT 13 U/l (0-40); Albumin 3.8 gm/dL (3.2-5.2); Albumin/Globulin Ratio 1.4 (1.0-2.3); Alkaline Phosphatase 57 U/L (39-117); Blood Urea Nitrogen 14 mg/dl (8-23); Lipase 21 U/L (7-60)
[2017-11-27] MEDS ORDERED: ASPIRIN 81 MG TAB.CHEW CHEWED ONE (08:04)
--- NOTE | 2017-11-27 10:07 | Internal Med History&Physical ---
Medical - H&P: HPI Patient information: Note initiated : 11/27/17 at 10:07 am Service Date, if different from initiated Date: [] Patient: Tressa Galeas 72 y/o F admitted on for fever. Chief Complaint: [] Chief complaint: abdominal pain and diarrhea and malaise History of present illness: Ms. Galeas is a 72-year-old female comes in by EMS with fever of 102.5 and bilateral lower quadrant tenderness; She has also had a 3 day history of nausea and vomiting and diarrhea. Diarrhea with each trip for voiding to bathroom ie 5 xs day. She had multiple last night and reports is brown without blood or melena. Tylenol appears to help-she took some before coming in and now her temperature is down to 100.5. Some shortness of breath and general malaise. Had CT angiogram of the chest 2 days ago-notably no pulmonary emboli but she does have significant atherosclerosis of her heart noted. No chest pain though but significant cough, nonproductive 3 weeks ago with stent placement by Dr. Leigh. She says was done for ambulatory claudication and did resolve much of those symptoms. Diarrhea was not immediate after stent but started about 5 days ago and coincides with feeling poorly. She denies dysuria and has had normal urine voids. Pt drinks lots of fluids just not much water. Likes iced coffee. UA dipstick positive, micro and culture pending. CT abdomen was done and I discussed with Dr. Tran possibility of ischemic bowel given pt abd tenderness. no bowel wall air. SMA and celiac patent. LINDSEY is crossed by stent but has some contrast possibly filling retrograde. Bladder not full but looks ok. - Constitutional Constitutional: Present: fatigue, fever(s), malaise, weakness, weight loss Additional comments: 180 lbs down to 110 lbs after lazer surgery for adhesion bowel obstruction 3 years ago in [place] - Cardiovascular Cardiovascular: Present: claudication. Absent: chest pain, edema, leg edema - Respiratory Respiratory: Absent: cough, hemoptysis, excessive phlegm production - Gastrointestinal Gastrointestinal: Present: abdominal pain, change in bowel habits, diarrhea, nausea. Absent: hematochezia, melena - Genitourinary Genitourinary: Present: urinary frequency, urinary incontinence Menstruation: Present: post hysterectomy (age 17 ), other (c section age 15 and 17,) - Musculoskeletal Musculoskeletal: Present: muscle weakness, other - Neurological Neurological: Present: as per HPI - Endocrine Endocrine: Present: fatigue Medical - H&P: PMH Medical history: claudication, hypothyroidism COPD, Claudication PVD, Aortic stenosis, REnal artery stenosis Surgical history: C section 15 SESAR BSO 17 Adhesiolysis and bowel resection 1 foot about age 20 AAA stent October 2017 Smoking status: Current every day smoker Have you smoked in the last 12 months: Yes (1/2 ppd) Drug use: none Alcohol use: none Medical - H&P: Meds Home Medications Medication Instructions Recorded Confirmed Type Aspirin [Adult Low Dose Aspirin EC] 81 mg PO DAILY 09/07/15 11/27/17 History Ipratropium/Albuterol Sulfate 2 puff INH QID #1 inhaler 12/22/16 11/17/17 Rx [Combivent] predniSONE [Deltasone] 40 mg PO DAILY #6 tab 12/22/16 11/17/17 Rx atenolol 25 mg tablet 25 mg PO DAILY #90 tab 12/23/16 11/27/17 Rx levothyroxine 100 mcg tablet 100 mcg PO DAILY #90 tab 12/23/16 11/27/17 Rx sertraline 50 mg tablet 50 mg PO QDAY #90 tab 12/23/16 11/27/17 Rx simvastatin 40 mg tablet 40 mg PO HS #90 tab 12/23/16 11/27/17 Rx methocarbamol 750 mg tablet 750 mg PO Q6H PRN #90 tab 04/12/17 11/17/17 Rx tramadol 50 mg tablet 50 mg PO Q6H PRN #90 tab 04/12/17 11/27/17 Rx bisoprolol fumarate 10 mg tablet 10 mg PO QDAY #90 tab 04/21/17 11/17/17 Rx Allergies Allergy/AdvReac Type Severity Reaction Status Date / Time Penicillins Allergy Unknown Unknown Verified 11/17/17 13:43 Hydromorphone AdvReac Intermediate Nausea Verified 11/17/17 13:43 Medical - H&P: Exam - Constitutional Vitals: Temp Pulse Resp BP Pulse Ox 99.5 F H 85 20 101/63 96 11/27/17 08:02 11/27/17 06:00 11/27/17 06:00 11/27/17 06:00 11/27/17 06:00 General appearance: average body habitus, no acute distress - Head Head exam: Present: atraumatic - Expanded ENT Exam Mouth exam: Present: moist - Neck Neck exam: Present: full ROM. Absent: tenderness - Respiratory Respiratory exam: Present: normal respiratory exam, CTAB. Absent: rales, stridor, wheezes - Cardiovascular Cardiovascular exam: Present: normal rate and rhythm. Absent: systolic murmur - GI/Abdominal GI/Abdominal exam: Present: soft, tenderness. Absent: distended, rebound Additional comments: bilateral lower quadrants and suprapubic - Rectal Rectal exam: Absent: deferred - Extremities Exam Extremities exam: Absent: pedal edema - Expanded Upper Extremities Exam Vascular: Present: radial pulse (2+) - Expanded Lower Extremities Exam Neuro vascular tendon exam: Present: no vascular compromise (2+ bilateral DP) Medical - H&P: Reslt - Labs CBC & Chem 7: 11/27/17 06:50 11/27/17 06:50 Labs: Short CBC 11/27/17 Range/Units 06:50 WBC 6.8 (4.5-11.0) K/mcL Hgb 12.3 (12.0-15.0) g/dL Hct 36.4 (36.0-48.0) % Plt Count 287 (140-440) K/mcL BMP 11/27/17 06:50 Sodium 139 Potassium 3.9 Chloride 99 Carbon Dioxide 27 BUN 14 Creatinine 1.1 Glucose 119 H Calcium 8.8 Cardiac Enzymes 11/27/17 Range/Units 06:50 Troponin T 0.79 H* (0-0.03) ng/ml Liver Function 11/27/17 Range/Units 06:50 Total Bilirubin 0.3 (0.0-1.0) mg/dL AST 28 (0-37) U/l ALT 13 (0-40) U/l Alkaline Phosphatase 57 (39-117) U/L Albumin 3.8 (3.2-5.2) gm/dL - EKG Data EKG shows normal: sinus rhythm, ST-T waves (normal) Rate: normal Medical - H&P: A/P (1) Diarrhea Current visit: Yes Status: Acute check stool studies. hydrate. low dose lovenox prophylaxis (2) Sepsis Current visit: Yes Status: Acute unclear etiology. positive UA but micro and Culture pending. blood cultures done and started on Zosyn. bowel or urine etiology suspected. 3 liters saline given thus far and still hypotensive. (3) Elevated troponin Current visit: Yes Status: Acute will follow. has CAD by CT chest but no angina symptoms or history. (4) Abdominal aortic stenosis Current visit: No Status: Chronic recent procedure and now abdominal pain. imaging is reassuring as is normal lactate. (5) UTI (urinary tract infection) Current visit: Yes Status: Acute await culture ID and sensitivity. - Narrative A/P Narrative: 70 minutes spent in evaluation and coordination of care for this patient
[2017-11-27] MEDS: 0.9 % SODIUM CHLORIDE 1,000 ML IV SCH ×3 (11:00→20:06)
[2017-11-27] MEDS: metroNIDAZOLE 500 MG/100 ML BAG IV SCH ×2 (12:12→22:10)
[2017-11-27] MEDS: ASPIRIN 325 MG ENTERIC COATED TABLET PO SCH (12:32)
[2017-11-27] MEDS ORDERED: 0.9 % SODIUM CHLORIDE 10 ML SYRINGE IV PRN (12:40)
--- NOTE | 2017-11-27 13:00 | XRay Report ---
CLINICAL INFORMATION: Reason for Exam:PICC PLACEMENT COMPARISON: 12/20/2016 FINDINGS: Heart size, mediastinum and pulmonary vessels are normal. Left PICC line tip is in satisfactory position overlying the azygos/ SVC junction. Lungs are clear. No effusions. IMPRESSION: PICC line in satisfactory position. No acute disease Interpreted and Authenticated by: Robert Tran 11/27/17
--- NOTE | 2017-11-27 13:00 | Cat Scan Report ---
CLINICAL INFORMATION: Fever and abdominal pain COMPARISON: 05/14/[address] TECHNIQUE: Following enteric contrast, 80 cc of Isovue-300 were injected intravenously, and 60 seconds later, 0.625 mm helical slices were obtained from the mid heart through the subtrochanteric regions. Following reconstruction, 2.5 mm sagittal, coronal and axial reformatted images were processed and reviewed at bone, lung and soft tissue windows. Five minutes later, 0.625 mm helical slices were obtained from the mid heart through the kidneys and viewed at soft tissue windows.The exam was performed using radiation dose optimization techniques including, but not limited to, automated exposure control, adjustment of the mA and/or kV according to patient size and use of iterative reconstruction technique. FINDINGS: Lung bases show no abnormality. There are no effusions. Small hiatal hernia is again noted. The visualized heart is normal in size and configuration. There is a 10 mm nodule, with irregular borders, in the inferior lateral quadrant of the right breast. Images through the abdomen show the gallbladder and bile ducts, liver, adrenal glands, spleen and pancreas to the normal. Simple cysts in both kidneys are stable. A infrarenal endograft in place since previous study resulting in return of the aorta are normal caliber (previous stenosis technologist. 18 mm. There is a 6 cm stenosis of the right renal artery greater than 75%. Seen. The left renal celiac SMA arteries are normal. The LINDSEY origin excluded by radiograph but retrograde fills via collaterals. Scattered plaque is seen within the common femoral and iliac arteries but no stenosis. Images should the pelvis show hysterectomy nephrectomy changes. Urinary bladder is minimally distended but shows no gross abnormality. The stomach small large bowel are normal. Bone windows show no osseous abnormality. IMPRESSION: 1. No cause identified for acute abdominal pain. No primary or secondary evidence for ischemic colitis 2. Endovascular graft in the infrarenal abdominal aorta has reestablished normal aortic lumen diameter 18 mm (previous high-grade aortic stenosis acknowledged) 3. 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 4. Small hiatal hernia 5. 10 mm nodule with irregular borders in the inferior lateral right breast. Suggest bilateral diagnostic mammogram and right breast ultrasound to evaluate for potential breast cancer. Interpreted and Authenticated by: Robert Tran 11/27/17
[2017-11-27] MEDS: 0.9 % SODIUM CHLORIDE 10 ML SYRINGE IV SCH ×3 (13:26→23:13)
[2017-11-27] MEDS: NICOTINE 7 MG PATCH TOPICAL SCH (13:31)
[2017-11-27 16:06] LABS: Appearance,Urine CLEAR; Bacteria,Urine FEW /hpf (0); Bilirubin,Urine NEG (NEG); Color,Urine YELLOW; Glucose,Urine (UA) NEGATIVE (NEG); Leukocyte Esterase,Urine NEG /uL (NEG); Protein,Urine NEG (NEG); Specific Gravity,Urine 1.031 (1.000-1.035); Urine Blood 0.2 mg/dL (<0.03); Urine RBC 1 /hpf (0-1); Urine Squamous Epithelial Cell 3 /hpf (0-4); Urine WBC 2 /hpf (0-4); Urobilinogen,Urine NEG (NEG)
[2017-11-27] MEDS: HYDROcodone/APAP 5/325MG TABLET PO PRN (20:52)
[2017-11-27] MEDS: ONDANSETRON 4 MG/2 ML VIAL IV PRN (20:55)
[2017-11-27] MEDS ORDERED: MICONAZOLE NITRATE VAG SCH (21:00)
[2017-11-28] MEDS ORDERED: PROMETHAZINE 25 MG/ML VIAL IV PRN ×2 (00:56→21:00)
[2017-11-28] MEDS ORDERED: PROMETHAZINE 25 MG/ML VIAL ONE (01:04)
[2017-11-28] MEDS: ONDANSETRON 4 MG/2 ML VIAL IV PRN (01:07)
[2017-11-28] MEDS: 0.9 % SODIUM CHLORIDE 1,000 ML IV SCH ×6 (01:20→21:06)
[2017-11-28] MEDS ORDERED: traMADol 50 MG TABLET PO PRN ×2 (01:31→21:00)
[2017-11-28] MEDS: HYDROcodone/APAP 5/325MG TABLET PO PRN (01:45)
[2017-11-28] MEDS ORDERED: COSYNTROPIN 0.25 MG VIAL IV ONE (05:02)
[2017-11-28] MEDS: metroNIDAZOLE 500 MG/100 ML BAG IV SCH (05:37)
[2017-11-28 06:10] LABS: Basophils # (Auto) 0 K/mcL (0.0-0.3); Basophils % (Auto) 0.4 % (0.0-2.0); Eosinophils # (Auto) 0 K/mcL (0.0-0.7); Granulocytes % (Auto) 71.2 % (38.0-78.0); Lymphocytes # (Auto) 0.8 K/mcL (1.5-4.8); Lymphocytes % (Auto) 17.2 % (15.5-49.0); Mean Cell Volume 93.4 fL (80.0-100.0); Mean Corpuscular HGB Conc 33.2 g/dL (31.0-36.0); Mean Corpuscular Hemoglobin 31.1 pg (26.0-34.0); Monocytes # (Auto) 0.5 K/mcL (0.1-0.9); Monocytes % (Auto) 10.2 % (1.0-12.0); Platelet Count 205 K/mcL (140-440); Red Cell Distribution Width 14.1 % (11.5-14.5)
[2017-11-28 06:24] LABS: ALT/SGPT 10 U/l (0-40); Albumin 2.7 gm/dL (3.2-5.2); Albumin/Globulin Ratio 1.3 (1.0-2.3); Alkaline Phosphatase 37 U/L (39-117); Bilirubin,Direct < 0.2 mg/dL (0.0-0.3); Blood Urea Nitrogen 9 mg/dl (8-23); Gamma Glutamyl Transpeptidase 10 U/L (5-36); Uric Acid 3.7 mg/dL (2.5-8.0)
[2017-11-28 06:41] LABS: Cortisol,AM 5.8 ug/dl (6.2-19.4)
[2017-11-28] MEDS: 0.9 % SODIUM CHLORIDE 10 ML SYRINGE IV SCH ×7 (07:24→21:07)
[2017-11-28] MEDS ORDERED: LEVOTHYROXINE 100 MCG TABLET PO SCH (07:30)
[2017-11-28] MEDS ORDERED: ENOXAPARIN 40 MG/0.4 ML SYRINGE SQ SCH (09:00)
[2017-11-28] MEDS ORDERED: ASPIRIN 81 MG TAB.CHEW PO SCH (09:00)
[2017-11-28] MEDS ORDERED: SERTRALINE 50 MG TABLET PO SCH (09:00)
[2017-11-28] MEDS: ASPIRIN 325 MG ENTERIC COATED TABLET PO SCH (09:37)
[2017-11-28] MEDS: LEVOFLOXACIN 500 MG/100 ML BAG IV SCH ×2 (09:37→19:44)
[2017-11-28 11:27] LABS: Free T4 (Free Thyroxine) 0.95 ng/dl (0.7-1.7)
[2017-11-28] MEDS: NICOTINE 7 MG PATCH TOPICAL SCH (12:32)
[2017-11-28] MEDS: HYDROCORTISONE SOD SUCC 100 MG VIAL IV SCH ×3 (12:35→23:59)
--- NOTE | 2017-11-28 15:22 | Internal Med Progress Note ---
Medical - PN: Subj Patient information: Note initiated : 11/28/17 at 3:17 pm Service Date, if different from initiated Date: [] Patient: Tressa Galeas 72 y/o F admitted on 11/27/17 for Fever/UTI, Sepsis. Chief Complaint: [] Interval history: pt says she feels better this morning. Abdominal pain less and near resolved. The nausea is gone after phenergan and nausea was brought on by hydrocodone. She gets sick to stomach with any narcotic. Pt felt better upon awakening this morning but says after the stimulation test feels better additionally. the pt has never been diagnosed with adrenal insufficiency and recent steroids were only for recent respiratory infection. Pt says that she is under severe stress at home. 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 They have some disabilities. One 16, 10, and 6 years old. Pt has back pain and overwhelmed. In last year has caregiver help. Her and her adopted kids together but he has since . - Constitutional Vitals: Vital Signs Temp Pulse Resp BP Pulse Ox 98.0 F 64 21 121/61 95 11/28/17 12:00 11/28/17 14:19 11/28/17 14:19 11/28/17 14:01 11/28/17 14:19 Period Temp Pulse Resp BP Sys/Ridley Pulse Ox Last 24 Hr 98.0 F-99 F 51-71 13-23 68-134/38-116 92-99 Intake and Output 11/28/17 11/28/17 11/28/17 05:59 13:59 21:59 Intake Total 1100 / 1100 480 / 480 Output Total 225 / 225 1100 / 1100 Balance 875 / 875 -620 / -620 Weight 136 lb 14.4 oz Patient Weight 11/29/17 05:59 Weight 136 lb 14.4 oz Intake & Output: Intake & Output 11/28/17 11/28/17 11/28/17 05:59 13:59 21:59 Intake Total 1100 / 1100 480 / 480 Output Total 225 / 225 1100 / 1100 Balance 875 / 875 -620 / -620 Weight 136 lb 14.4 oz Intake: IV 1100 / 1100 Sodium Chloride 0.9% 1,000 ml @ 1000 / 1000 150 mls/hr IV .Q6H40M [facility] Rx#: [id number] Oral 480 / 480 Output: Void Amount 175 / 175 1100 / 1100 Emesis 50 / 50 Other: Meal Breakfast Percent of Meal Consumed 50% Feeding Ability Independent # Voids 1 1 General appearance: average body habitus, cooperative, no acute distress - Respiratory Respiratory exam: Present: normal respiratory exam, CTAB - Cardiovascular Cardiovascular exam: Present: normal rate and rhythm. Absent: systolic murmur - GI/Abdominal GI/Abdominal exam: Present: tenderness Additional comments: scant lower quadrant. much improved from previousl - Extremities Exam Extremities exam: Present: pedal edema. Absent: calf tenderness - Psychiatric Psychiatric exam: Present: normal affect, normal mood - Skin Skin exam: Present: dry, warm Medical - PN: Obj Da - Labs CBC & Chem 7: 11/28/17 05:02 11/28/17 05:02 Labs: Abnormal Lab Results 11/28/17 11/28/17 11/28/17 10:11 05:02 05:02 RBC 3.00 L Hgb 9.3 L Hct 28.0 L POC Hct Gran % Lymph % (Auto) Lymph # (Auto) 0.8 L POC Creatinine Glucose POC Glucose Calcium 7.5 L POC WB Ioniz Calcium Phosphorus 2.3 L Alkaline Phosphatase 37 L Troponin T 0.49 H* Total Protein 4.8 L Albumin 2.7 L Globulin 2.1 L Cortisol AM Sample 5.8 L Urine Occult Blood Urine Nitrate Urine Bacteria 11/27/17 11/27/17 11/27/17 14:55 11:24 06:50 RBC Hgb Hct POC Hct Gran % Lymph % (Auto) Lymph # (Auto) POC Creatinine Glucose POC Glucose Calcium POC WB Ioniz Calcium Phosphorus Alkaline Phosphatase Troponin T 0.53 H* 0.79 H* Total Protein Albumin Globulin Cortisol AM Sample Urine Occult Blood 0.2 A Urine Nitrate Pos A Urine Bacteria Few A 11/27/17 11/27/17 06:50 06:50 RBC 3.92 L Hgb Hct POC Hct 35.0 L Gran % 94.5 H Lymph % (Auto) 3.1 L Lymph # (Auto) 0.2 L POC Creatinine 1.2 H Glucose 119 H POC Glucose 116 H Calcium POC WB Ioniz Calcium 1.07 L Phosphorus Alkaline Phosphatase Troponin T Total Protein Albumin Globulin Cortisol AM Sample Urine Occult Blood Urine Nitrate Urine Bacteria Meds: Medications Aspirin (Aspirin) 81 mg PO DAILY KATELYNN Last Admin: 11/28/17 09:37 Dose: 81 mg Ciprofloxacin (Cipro) 250 mg PO BID [facility] Enoxaparin Sodium (Lovenox) 40 mg SQ DAILY [facility] Last Admin: 11/28/17 09:37 Dose: 40 mg Heparin Sodium (Porcine) (Heparin Flush) 2 ml IV Q12 [facility] Last Admin: 11/28/17 09:39 Dose: 2 ml Hydrocortisone Sodium Succinate (Solu-Cortef) 50 mg IV Q6 [facility] Last Admin: 11/28/17 12:35 Dose: 50 mg Sodium Chloride (Sodium Chloride 0.9%) 1,000 mls @ 150 mls/hr IV .Q6H40M [facility] Last Admin: 11/28/17 12:33 Dose: Not Given Levothyroxine Sodium (Synthroid) 100 mcg PO ACB [facility] Last Admin: 11/28/17 07:24 Dose: 100 mcg Nicotine (Nicoderm) 7 mg TOPICAL DAILY@1000 [facility] Last Admin: 11/28/17 12:32 Dose: 7 mg Ondansetron HCl (Zofran) 4 mg IV Q4HP PRN PRN Reason: Nausea And Vomiting Last Admin: 11/28/17 01:07 Dose: 4 mg Promethazine HCl (Phenergan) 12.5 mg IV Q4HP PRN PRN Reason: Nausea And Vomiting Last Admin: 11/28/17 01:07 Dose: 12.5 mg Sertraline HCl (Zoloft) 50 mg PO DAILY [facility] Last Admin: 11/28/17 09:37 Dose: 50 mg Simvastatin (Zocor) 40 mg PO HS [facility] Sodium Chloride (Saline Flush) 10 ml IV Q8 [facility] Last Admin: 11/28/17 12:41 Dose: 10 ml Sodium Chloride (Saline Flush) 10 ml IV UD PRN PRN Reason: FLUSH Sodium Chloride (Saline Flush) 10 ml IV Q12 [facility] Last Admin: 11/28/17 12:32 Dose: Not Given Tramadol HCl (Ultram) 50 mg PO Q6HP PRN PRN Reason: pain Medical - PN: A/P - Time Spent With Patient Total time spent is greater than 50% in coordination of care (as documented) at patient's floor/unit and/or counseling patient: Greater than 35 minutes (1) Diarrhea Status: Acute Assessment and plan: resolved Current Visit: Yes (2) Sepsis Status: Acute Assessment and plan: based on fever and hypotension but no identifiable infection other than UTI. May be that is actually UTI and fever plus adrenal insufficiency with hypotension. Current Visit: Yes (3) Elevated troponin Status: Acute Assessment and plan: trended down. no chest pain. Echo is pending. Current Visit: Yes (4) Abdominal aortic stenosis Status: Chronic Assessment and plan: recent stent. no further suggestion of abdominal pain Current Visit: No (5) UTI (urinary tract infection) Status: Acute Assessment and plan: cont oral cipro. await cultures Current Visit: Yes (6) Adrenal apoplexy Status: Acute Assessment and plan: the hypotension lack of tachycardia, nausea, abd pain and lack of sepsis infection beyond mild UTI is suspicious. Today the baseline cortisol only 5.5 which is abnormal low but stim to 21 at 60 mins which is normal. Possibly pituitary or adrenal malfunction. Will trial steroid 50mg q6 hydrocortisone. reevaluate clinically in the am. Current Visit: Yes Medical - PN: Qual - VTE Deep Vein Thrombosis/Pulmonary Embolism Present on Admission: No
[2017-11-28] MEDS ORDERED: ONDANSETRON 4 MG/2 ML VIAL IV PRN (21:00)
[2017-11-28] MEDS ORDERED: 0.9 % SODIUM CHLORIDE 10 ML SYRINGE IV PRN (21:00)
[2017-11-28] MEDS ORDERED: CIPROFLOXACIN 250 MG TABLET PO SCH (21:00)
[2017-11-28] MEDS ORDERED: SIMVASTATIN 40 MG TABLET PO SCH ×2 (21:00)
[2017-11-28] MEDS: CIPROFLOXACIN 250 MG TABLET PO SCH (21:06)
[2017-11-29] MEDS: 0.9 % SODIUM CHLORIDE 1,000 ML IV SCH ×2 (02:52→12:17)
[2017-11-29 06:01] LABS: Basophils # (Auto) 0 K/mcL (0.0-0.3); Basophils % (Auto) 0.3 % (0.0-2.0); Eosinophils # (Auto) 0 K/mcL (0.0-0.7); Eosinophils % (Auto) 0 % (0.0-7.0); Granulocytes % (Auto) 81.6 % (38.0-78.0); Lymphocytes # (Auto) 0.9 K/mcL (1.5-4.8); Lymphocytes % (Auto) 13.4 % (15.5-49.0); Mean Cell Volume 93.5 fL (80.0-100.0); Mean Corpuscular HGB Conc 33.4 g/dL (31.0-36.0); Mean Corpuscular Hemoglobin 31.2 pg (26.0-34.0); Monocytes # (Auto) 0.3 K/mcL (0.1-0.9); Monocytes % (Auto) 4.7 % (1.0-12.0); Platelet Count 249 K/mcL (140-440); RBC 3.34 M/mcL (4.00-5.20); Red Cell Distribution Width 13.9 % (11.5-14.5)
[2017-11-29] MEDS: HYDROCORTISONE SOD SUCC 100 MG VIAL IV SCH ×2 (06:03→12:43)
[2017-11-29] MEDS: 0.9 % SODIUM CHLORIDE 10 ML SYRINGE IV SCH ×4 (06:04→12:43)
[2017-11-29 06:11] LABS: Blood Urea Nitrogen 7 mg/dl (8-23)
[2017-11-29] MEDS ORDERED: LEVOTHYROXINE 100 MCG TABLET PO SCH (07:30)
[2017-11-29] MEDS ORDERED: SERTRALINE 50 MG TABLET PO SCH (09:00)
[2017-11-29] MEDS ORDERED: ENOXAPARIN 40 MG/0.4 ML SYRINGE SQ SCH (09:00)
[2017-11-29] MEDS ORDERED: ASPIRIN 81 MG TAB.CHEW PO SCH (09:00)
[2017-11-29] MEDS: CIPROFLOXACIN 250 MG TABLET PO SCH (09:34)
[2017-11-29] MEDS ORDERED: NICOTINE 7 MG PATCH TOPICAL SCH (10:00)
--- NOTE | 2017-11-29 13:20 | Discharge Summary ---
Medical - DS: Prov Patient information: Note initiated : 11/29/17 at 1:15 pm Service Date, if different from initiated Date: [] Patient: Tressa Galeas 72 y/o F admitted on 11/27/17 for Fever/UTI, Sepsis. Chief Complaint: [] Date of admission: 11/27/17 10:40 Discharge date: 11/29/17 Primary care physician: Robert Jean Admitting clinician: Philippe Cardona Attending physician on admission: Philippe Cardona Consults: 11/27/17 08:41 Consult to Physician [CONS] Stat Comment: Consulting Provider: Philippe Cardona Reason For Exam: Physician to Consult Attending physician on discharge: Philippe Cardona Discharging clinician: Philippe Cardona Medical - DS: Meds - Discharge Medications Prescriptions: Ciprofloxacin [Cipro] 250 mg PO BID #8 tab Hydrocortisone [Cortef] 10 mg PO QAMCC #60 tab Active and Home Medications: Home Medications Aspirin [Adult Low Dose Aspirin EC] 81 mg PO DAILY 09/07/15 [History Confirmed 11/27/17 Last Taken 12/19/16 19:00] Ipratropium/Albuterol Sulfate [Combivent] 2 puff INH QID #1 inhaler 12/22/16 [ Rx Confirmed 11/17/17 Last Taken Unknown] predniSONE [Deltasone] 40 mg PO DAILY #6 tab 12/22/16 [Rx Confirmed 11/17/17 Last Taken Unknown] atenolol 25 mg tablet 25 mg PO DAILY #90 tab 12/23/16 [Rx Confirmed 11/27/17 Last Taken Unknown] levothyroxine 100 mcg tablet 100 mcg PO DAILY #90 tab 12/23/16 [Rx Confirmed 04/06 Last Taken Unknown] sertraline 50 mg tablet 50 mg PO QDAY #90 tab 12/23/16 [Rx Confirmed 11/27/17 Last Taken Unknown] simvastatin 40 mg tablet 40 mg PO HS #90 tab 12/23/16 [Rx Confirmed 11/27/17 Last Taken Unknown] methocarbamol 750 mg tablet 750 mg PO Q6H PRN #90 tab 04/12/17 [Rx Confirmed Last Taken Unknown] tramadol 50 mg tablet 50 mg PO Q6H PRN #90 tab 04/12/17 [Rx Confirmed 11/27/17 Last Taken Unknown] bisoprolol fumarate 10 mg tablet 10 mg PO QDAY #90 tab 04/21/17 [Rx Confirmed Last Taken Unknown] Medical - DS: Hosp Hospital course: Mr. Galeas is a 72 year old F was admitted from the emergency department with signs and symptoms of sepsis as evidenced by fever of 101 and hypotension requiring 3 L fluid bolus. The patient did not have elevated white count or lactic acid. She also did not have tachycardia with her hypotension which was unusual. Patient has been on prednisone for COPD in the recent year but not on a prolonged course. She does have hypothyroidism but TSH has been and did check out to be normal. Her cortisol with blood pressure 80 heart rate 65 checked out at 13 which was low normal but typically IC cortisols greater than 30 when patient's are admitted with sepsis. Urine culture was positive however blood cultures are negative the patient has therefore been worked up with a repeat cosyntropin stim test baseline cortisol in the morning 5.8 stimulating to 18 and 21 respectively at 30 and 60 minutes. 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 Patient's nausea, abdominal pain, hypotension all resolved. Her heart rate 60 with blood pressure 80 systolic change to blood pressure 140 but the heart rate remains at 60. Her beta mo has been stopped and she will be on a steroid wean to follow up with her primary care physician. I considered the possibility of complication from her infrarenal abdominal aortic stent placed by Dr. Leigh 3 weeks ago however the CT with contrast showed the SMA and celiac vessels to be patent and the LINDSEY vessel appeared to be filling retrograde which is not unexpected it looks like the stent did cross the at LINDSEY but there was no sign of bowel ischemia or functional compromise based on the scan. Abdominal exam continued to improve and there was no development of acidosis Discharge diagnosis: Klebsiella urinary tract infection and adrenal insufficiency Secondary discharge diagnosis: Adrenal insufficiency Hypertension Hypothyroidism Reason for admission: hypotension and suspected sepsis Pertinent studies/significant findings: Urinary tract infection but no bowel ischemia or positive blood cultures Complications: None - Time Spent with Patient Total time spent providing and/or coordinating discharge services: Greater than 30 minutes Medical - DS: Exam - Constitutional Vitals: Vital Signs Temp Pulse Pulse Resp BP BP Pulse Ox 06/12/18 12:00 98.2 F 61 20 143/74 95 11/29/17 08:00 61 20 95 11/29/17 07:59 98.5 F 58 L 20 145/76 95 11/29/17 04:00 97.8 F 77 20 179/90 92 11/28/17 22:56 97.9 F 59 L 20 159/81 96 11/28/17 20:08 97.2 F 64 20 149/69 97 11/28/17 19:59 97 11/28/17 18:12 62 20 97 11/28/17 17:02 60 13 124/111 97 11/28/17 16:53 57 L 24 H 97 11/28/17 16:52 59 L 21 97 11/28/17 16:08 68 18 144/97 97 11/28/17 15:01 67 19 116/53 97 11/28/17 14:19 64 21 95 11/28/17 14:01 60 22 121/61 95 11/28/17 13:31 59 L 17 106/56 98 Intake and Output 11/28/17 11/29/17 11/29/17 21:59 05:59 13:59 Intake Total 2479 / 2479 350 / 350 250 / 250 Output Total 250 / 250 100 / 100 Balance 2229 / 2229 350 / 350 150 / 150 Intake: IV 1978 Sodium Chloride 0.9% 1,000 ml @ 1000 / 1000 150 mls/hr IV .Q6H40M [facility] Rx#: [id number] Oral 500 / 500 350 / 350 250 / 250 Output: Void Amount 250 / 250 100 / 100 Other: Meal Dinner Lunch Percent of Meal Consumed 100% 100% Feeding Ability Independent # Voids 1 5 Weight 138 lb General appearance: average body habitus, cooperative, no acute distress - Respiratory Respiratory exam: Present: normal respiratory exam, CTAB - Cardiovascular Cardiovascular exam: Present: normal rate and rhythm - GI/Abdominal GI/Abdominal exam: Present: soft. Absent: rebound, rigid, tenderness - Extremities Exam Extremities exam: Absent: pedal edema Medical - DS: Data Labs on day of discharge: Labs from last 24 hours 11/29/17 11/29/17 04:00 04:00 WBC 6.4 RBC 3.34 L Hgb 10.4 L Hct 31.2 L MCV 93.5 MCH 31.2 MCHC 33.4 RDW 13.9 Plt Count 249 MPV 8.4 Gran % 81.6 H Lymph % (Auto) 13.4 L [place] % (Auto) 4.7 Eos % (Auto) 0 Baso % (Auto) 0.3 Gran # 5.2 Lymph # (Auto) 0.9 L [place] # (Auto) 0.3 Eos # (Auto) 0 Baso # (Auto) 0 Sodium 140 Potassium 3.9 Chloride 106 Carbon Dioxide 24 Anion Gap 10.0 BUN 7 L Creatinine 0.7 GFR Calculation 85 Glucose 123 H Calcium 8.3 L Preliminary micro results at discharge 11/27/17 06:55 Blood Culture - Preliminary Blood 11/27/17 06:50 Blood Culture - Preliminary Blood Medical - DS: A/P - Patient/Caregiver Discharge Instructions Diet: Regular Diet Prescriptions: Ciprofloxacin [Cipro] 250 mg PO BID #8 tab Hydrocortisone [Cortef] 10 mg PO QAMCC #60 tab - Problem Maintenance (1) Diarrhea Status: Acute Comment: Resolved (2) Sepsis Status: Inactive Comment: Ruled out based on negative blood cultures and other diagnosis made (3) Elevated troponin Status: Acute Comment: Continued to trend down (4) Abdominal aortic stenosis Status: Chronic Comment: Recently stented and no signs of complication (5) UTI (urinary tract infection) Status: Acute Comment: Klebsiella sensitive to all antibiotics will finish a ciprofloxacin course of 7 days Qualifiers: Urinary tract infection type: acute cystitis Hematuria presence: with hematuria Qualified Code(s): N30.01 - Acute cystitis with hematuria (6) Adrenal apoplexy Status: Acute Comment: Has been treated with a acute stress dose steroids with good effect. We'll switch to hydrocortisone 20 mg twice a day for 3 days then 10 mg twice a day for a week then stop. Follow-up with PCP. If development of nausea vomiting hypotension then resume 20 mg twice a day and follow-up with primary care physician. - Follow up Plan Follow up with: Robert Jean DO [Primary Care Provider] - Disposition: Home, Self-Care Prognosis: Good Rehab Potential: Good I certify that the patient requires SNF services: No Overall status at discharge: patient is back to baseline Medical - DS: Qual - VTE Deep Vein Thrombosis/Pulmonary Embolism Present on Admission: No
== END 2017-11-29 16:20 | disposition home or self-care (01) | DRG 871 ==
LOC: ED 05:58 → ICU 10:40 → MEDSUR 11-28 20:54
PROVIDERS: ADMIT Internal Medicine; ATTEND Internal Medicine